=== PATIENT | male | born 1970 | race Caucasian/White ===

== ENCOUNTER 2022-05-12 11:38 | Outpatient (CLI) | payer OTHER, SELFPAY ==
--- NOTE | ~2022-05-12 | XR_ITS ---
XR abdomen/kub 1V DATE: 05/12/2022 11:57 INDICATION: Calcium kidney stone. TECHNIQUE: 2 supine AP views of the abdomen and pelvis COMPARISON: None FINDINGS: Rounded approximately 3 mm calcification overlying the lower pole of the right kidney, poss ible calcified renal calculus. Alternatively, this could be within the bowel lumen. There is a promin ent amount of fecal material and gas within the right colon. No other urinary tract calcified calculu s is detected. Noncontrast CT abdomen pelvis would be more sensitive and accurate for detection of urinary tract faustino culi. The psoas shadows are intact. Borderline splenic size. No visceromegaly is evident otherwise. No bowel obstruction. The lung bases are clear. Heart size appears normal. Included skeletal structures are unremarkable. IMPRESSION: Possible 3 mm lower pole right renal calcified calculus versus radial opaque material wit hin the bowel. Noncontrast CT abdomen pelvis would be more accurate sensitive for detection of urinar y tract calculi Reviewed, dictated and finalized at [facility]. Reviewed, dictated and finalized at [facility] [employer] IMPRESSION: Possible 3 mm lower pole right renal calcified calculus versus radi al opaque material within the bowel. Noncontrast CT abdomen pelvis would be mor e accurate sensitive for detection of urinary tract calculi
== END 2022-05-12 11:39 | disposition home or self-care (01) ==
LOC: ANHIMG 11:43
PROVIDERS: Visit Provider Urology
DX: N20.0 Calculus of kidney (principal)
CPT/HCPCS: 74018